=== PATIENT | male | born 1980 | race Caucasian/White ===

== ENCOUNTER 2017-05-11 22:32 | Emergency (ER) | payer BC | END 2017-05-12 00:28 | disposition home or self-care (01) | LOC: CED 22:32 | DX: G43.909 Migraine, unspecified, not intractable, without status migrainosus (principal) | CPT/HCPCS: 96374; 96375; 99284; J0780; J1200; J1885 ==

== ENCOUNTER 2017-05-30 10:05 | Emergency (ER) | payer BC ==
[~2017-05-30] VITALS: Ht 172.7 cm; Wt 88.9 kg
--- NOTE | ~2017-05-30 | CT4 ---
[facility] A Service of [facility] RADIOLOGY TEXT RESULTS PATIENT: MARANDA MARSH LOCATION: [facility] : 76 UNIT #: [id number] AGE: [address]: Yaron Vieyra MD SEX: M ORDER DR: [id number] [facility]. [place], [place] [address] [id number] E MR#: [id number] Acc #: [id number] NAME: MARANDA MARSH : 1980 SEX: M STUDY DATE/TIME: 05/30/2017 11:16 UNIT: [facility] ROOM: STUDY DESCRIPTION: CT Abd and Pelv Wo Cont Attending Physician: Yaron Vieyra M.D. Ordering Physician: Yaron Vieyra M.D. Primary Care Physician: Primary Care Physician No MEDICAL IMAGING REPORT This report is preliminary unless electronic signature is present EXAM CT of the abdomen and pelvis without contrast INDICATION Nausea, vomiting and left lower quadrant pain today. TECHNIQUE CT of the abdomen and pelvis was performed without contrast. Coronal and sagittal reformatted images were obtained. This CT exam was performed with one or more of the following radiation dose reduction techniques: automatic exposure control, adjustment of mA and/or kV according to patient size, and iterative reconstruction. COMPARISON No comparisons. FINDINGS The lung bases are clear. The liver, gallbladder and spleen are unremarkable. There is a prominent contour deformity of the lateral aspect of the right kidney. This is indeterminate on this noncontrast study. It may be a prominent lobation from a normal kidney, however an underlying mass cannot entirely be excluded. Suggest further evaluation with a multiphase contrast-enhanced MRI or CT on a non-emergent basis. There is a tiny exophytic lesion arising from the upper pole of the right kidney as well which is indeterminate and could also be better evaluated on multiphase cross-sectional imaging. The adrenal glands are unremarkable. The pancreas is unremarkable. PELVIS: The colon is unremarkable. The appendix is normal. There is no free fluid. The bone windows are unremarkable. IMPRESSION [facility] A Service of [facility] RADIOLOGY TEXT RESULTS PATIENT: MARANDA MARSH [id number] : [birth year] UNIT #: [id number] AGE: [address]: Yaron Vieyra MD SEX: M ORDER DR: 1. There is no acute intraabdominal or pelvic abnormality. 2. There is a rounded contour deformity of the lateral right kidney which is indeterminate. It may simply represent a normal lobation of the right kidney, however underlying lesion cannot entirely be excluded. Further evaluation with multiphase MRI of the abdomen with and without contrast or CT of the abdomen with and without contrast recommended on a non-emergent basis. Dictated by... Yann Pena M.D. THIS IS AN ELECTRONICALLY VERIFIED REPORT Yann Pena M.D. at 05/31/2017 7:35 AM Adrien TD: 05/31/2017 07:02 JOB #: [id number] MEDICAL IMAGING REPORT Page 1 of 1 COPY
--- NOTE | ~2017-05-30 | CT71 ---
[facility] A Service [facility] RADIOLOGY TEXT RESULTS PATIENT: MARANDA MARSH LOCATION: [facility] : 76 UNIT #: [id number] AGE: [address]: Yaron Vieyra MD SEX: M ORDER DR: [id number] [address] [address] [id number] E MR#: [id number] Acc #: [id number] NAME: MARANDA MARSH : 1980 SEX: M STUDY DATE/TIME: 05/30/2017 11:13 UNIT: [facility] ROOM: STUDY DESCRIPTION: CT Head Wo Contrast Attending Physician: Yaron Vieyra M.D. Ordering Physician: Yaron Vieyra M.D. Primary Care Physician: Primary Care Physician No MEDICAL IMAGING REPORT This report is preliminary unless electronic signature is present EXAM CT head without contrast INDICATION Nausea, vomiting with headache upon waking up this morning. TECHNIQUE CT of the head was performed without contrast. This CT examination was performed with one or more of the following radiation dose reduction techniques: automatic exposure control, adjustment of mA and/or kV according to patient size, and iterative reconstruction. COMPARISON None available. FINDINGS No intracranial hemorrhage. No acute cortical based infarction, focal mass lesion or hydrocephalus. Mucosal thickening and opacification of multiple ethmoid air cells. The included orbits are unremarkable. The bone windows are unremarkable. IMPRESSION 1. No acute intracranial abnormality. 2. Ethmoid sinusitis. Dictated by... Yann Pena M.D. THIS IS AN ELECTRONICALLY VERIFIED REPORT Yann Pena M.D. at 05/31/2017 7:35 AM ARS/mjs [facility] A Service [facility] RADIOLOGY TEXT RESULTS PATIENT: MARANDA MARSH LOCATION: [facility] : 76 UNIT #: [id number] AGE: [address]: Yaron Vieyra MD SEX: M ORDER DR: TD: 05/31/2017 06:58 JOB #: [id number] MEDICAL IMAGING REPORT Page 1 of 1 COPY
[2017-05-30 11:19] LABS: URINE SOURCE CLEAN CATCH
[2017-05-30 11:24] LABS: URINE APPEARANCE CLEAR; URINE BILIRUBIN NEG (NEG); URINE BLOOD NEG (NEG); URINE COLOR YELLOW; URINE GLUCOSE NEG (NEG); URINE KETONE TRACE (NEG); URINE LEUKOCYTE ESTERASE NEG (NEG); URINE NITRATE NEG (NEG); URINE PH 8.5 (5-8); URINE PROTEIN TRACE (NEG); URINE SPECIFIC GRAVITY 1.019 (1.003-1.035); URINE UROBILINOGEN 0.2 MG/DL (NEG)
[2017-05-30 11:33] LABS: CULTURE INDICATED? NO
[2017-05-30 11:57] LABS: BASOPHIL% 0.4 % (0-2.5); EOSINOPHIL# 0.1 X10e3 (0-0.7); EOSINOPHIL% 0.7 % (0.0-7.0); HEMATOCRIT 46.7 % (38.0-50.0); HEMOGLOBIN 16.1 gm/dL (13.0-16.0); LYMPHOCYTE# 1.6 X10e3 (1.0-3.5); LYMPHOCYTE% 13.8 % (17.0-45.0); MEAN CELL VOLUME 90.3 FL (83-96); MEAN CORPUSCULAR HGB CONC 34.4 g/dL (30-36); MEAN PLATELET VOLUME 9.9 FL (6.5-11.5); MONOCYTE# 0.5 X10e3 (0-1.0); MONOCYTE% 4.3 % (3.0-12.0); NEUTROPHIL# 9.1 X10e3 (1.5-7.1); NEUTROPHIL% 80.8 % (40-75); PLATELET COUNT 241 X10e3 (140-420); RED BLOOD COUNT 5.17 X10e (3.90-5.60); WHITE BLOOD COUNT 11.2 X10e3 (4.0-10.5)
[2017-05-30 12:03] LABS: DIFF IND NO
[2017-05-30 12:23] LABS: ALBUMIN SERUM 4.7 g/dL (3.5-5.0); BILIRUBIN, DIRECT 0.1 mg/dL (0.0-0.2); BILIRUBIN,INDIRECT 0.9 mg/dL (0.0-0.9); CALCIUM SERUM 9.7 mg/dL (8.4-10.2); GLOM FILT RATE Estimated 95.1 mL/min (>60); POTASSIUM 3.1 mmol/L (3.5-5.1); PROTEIN TOTAL SERUM 8.8 g/dL (6.0-8.3)
== END 2017-05-30 13:59 | disposition home or self-care (01) ==
LOC: CED 10:05
PROVIDERS: Emergency Medicine
DX: R51 Headache (principal); R10.9 Unspecified abdominal pain; R11.10 Vomiting, unspecified
CPT/HCPCS: 36415; 70450; 74176; 80048; 80076; 81003; 82150; 83690; 85025; 96361; 96374; 96375; 99284; J0780; J1170; J1200; J1885; J2270; J2405